=== PATIENT | female | born 1965 | race Caucasian/White ===

== ENCOUNTER → 2019-12-03 | Outpatient (CLI) | payer BC ==
--- NOTE | 2019-12-03 17:37 | KCIC ---
EXAM: Thyroid Ultrasound INDICATION: Reason: GOITER / Spl. Instructions: / History: ? TECHNIQUE: Real-time ultrasound of the thyroid was performed with permanent freeze-frame documentation. COMPARISON: None. ? FINDINGS: THYROID: Thyroid gland is heterogeneous echogenicity. ? Right Lobe: 6.1 x 2.3 x 2.6 cm. Nodule #1. Maximum size: 1.3 cm; Other 2 dimensions 1.0 x 0.8 cm. Location: Posterior medial midpole right thyroid lobe. This nodule is almost completely solid (2), hypoechoic (2), wider than tall (0), with ill-defined margins (0) and no echogenic foci (0). Total points score of 4. ACR TI-RADS risk category: TR4 (4-6 points): FNA if 1.5 cm, follow-up if 1-1.4 cm in 1, 2, 3, and 5 years. Nodule #2. Maximum size: 0.8 cm; Other 2 dimensions 0.7 x 0.7 cm. Location: Posterior central mid pole.. This nodule is cystic, anechoic, wider than tall with smooth margins and no echogenic foci. Total points score is 0. ACR TI-RADS risk category: TR1 (0 points): No fine-needle aspiration or follow-up required. ? Left Lobe: 5.6 x 2.1 x 2.1 cm. Nodule #3. Maximum size: 0.8 cm; Other 2 dimensions 0.7 x 0.5 cm. Location: Midpole left thyroid lobe.. This is a solid (2), hypoechoic (2), wider than tall (0), nodule with ill-defined margins (0), with no echogenic foci (0). Total point score of 4. ACR TI-RADS risk category: TR4 (4-6 points): FNA if 1.5 cm, follow-up if 1-1.4 cm in 1, 2, 3, and 5 years. ? Isthmus: 0.8 cm. Nodule #4. Maximum size: 1.1 cm; Other 2 dimensions 1.1 x 0.7 cm. Location: Left lateral aspect of the isthmus.. This is a mixed cystic and solid nodule (1), hypoechoic (2), wider than tall (0), with smooth margins (0) and no echogenic foci (0). Total points score 3. ACR TI-RADS risk category: TR3 (3 points): FNA if 2.5 cm, follow-up if 1.5-2.4 cm in 1, 3, and 5 years. ?? ? OTHER: No evidence of adjacent cervical adenopathy. ? IMPRESSION: ? Multiple thyroid nodules bilaterally as described. None currently meet size or morphology criteria for biopsy. Recommend follow-up ultrasound in one year. Electronically signed by: Olga Goldsmith MD (12/03/2019 5:35 PM) [id number]
== END | disposition home or self-care (01) ==
LOC: KCIC US 14:41
PROVIDERS: ATTEND Family Medicine
DX: E04.2 Nontoxic multinodular goiter (principal)
CPT/HCPCS: 76536